=== PATIENT | female | born 1955 | race Caucasian/White ===

== ENCOUNTER 2020-05-01 00:34 | Emergency (ER) | payer OTHER ==
[2020-05-01 00:38] VITALS: BP 142/77; PULSE 95
--- NOTE | 2020-05-01 01:19 | EDM.PDOC ---
ED HPI GENERAL MEDICAL PROBLEM - General Chief Complaint: Abdominal Pain Stated Complaint: right side abdominal pain Time Seen by Provider: 05/01/20 00:50 Source of Information: Reports: Patient History Limitations: Reports: No Limitations - History of Present Illness INITIAL COMMENTS - FREE TEXT/NARRATIVE: Pt presents with right flank pain that extends to RLQ Pain now much improved No fever No N/V/D No dysuria No trauma Onset: Today, Sudden Duration: Hour(s):, Getting Worse Location: Reports: Back Quality: Reports: Throbbing Severity: Moderate Abdominal Pain Score (Numeric/FACES): 8 - Related Data Allergies Allergy/AdvReac Type Severity Reaction Status Date / Time amoxicillin [From Augmentin] Allergy Rash Verified 04/28/16 09:35 clavulanic acid Allergy Rash Verified 04/28/16 09:35 [From Augmentin] Home Meds: Home Meds Escitalopram Oxalate [Lexapro] 10 mg PO DAILY 05/01/20 [History] Meloxicam [Mobic] 7.5 mg PO BID 05/01/20 [History] Past Medical History - Infectious Disease History Infectious Disease History: Reports: Mononucleosis, Mumps Social & Family History - Tobacco Use Tobacco Use Status *Q: Former Tobacco User Years of Tobacco use: 40 Packs/Tins Daily: 1.5 Used Tobacco, but Quit: Yes Month/Year Tobacco Last Used: 2013 - Caffeine Use Caffeine Use: Reports: Coffee - Recreational Drug Use Recreational Drug Use: No ED ROS GENERAL - Review of Systems Review Of Systems: See Below GI/Abdominal: Reports: Abdominal Pain Musculoskeletal: Reports: Back Pain ED EXAM, GI/ABD - Physical Exam Exam: See Below Exam Limited By: No Limitations General Appearance: Alert, WD/WN, Mild Distress GI/Abdominal Exam: No Distention, Tender Back Exam: CVA Tenderness (R) Neurological: Alert, Oriented Course - Vital Signs Last Recorded V/S: Last Vital Signs Temp 98.2 F 05/01/20 00:34 Pulse 95 05/01/20 00:34 Resp 20 05/01/20 00:34 BP 142/77 H 05/01/20 00:34 Pulse Ox 97 05/01/20 00:34 - Orders/Labs/Meds Labs: Laboratory Tests 05/01/20 Range/Units 00:47 Specimen Type Urinvoid Urine Color Yellow Urine Appearance Clear Urine pH 5.0 (5.0-9.0) Ur Specific [place] 1.025 (1.005-1.030) Urine Protein Negative (NEGATIVE) mg/dL Urine Glucose (UA) Negative (NEGATIVE) mg/dL Urine Ketones Negative (NEGATIVE) mg/dL Urine Occult Blood Negative (NEGATIVE) Urine Nitrite Negative (NEGATIVE) Urine Bilirubin Negative (NEGATIVE) Urine Urobilinogen 0.2 (0.2-1.0) E.U./dL Ur Leukocyte Esterase Negative (NEGATIVE) - Re-Assessments/Exams Free Text/Narrative Re-Assessment/Exam: 05/01/20 01:16 Pt feels much better now See UA D/W pt that pain may be due to kidney stone Does not desire Ct at this time Will treat expectantly and CT in future if worse Rx Tramadol One every 6 hours for pain Departure - Departure Time of Disposition: :20 Disposition: Home, Self-Care 01 Clinical Impression: Abdominal pain Qualifiers: Abdominal location: right lower quadrant Qualified Code(s): R10.31 - Right lower quadrant pain - Discharge Information *PRESCRIPTION DRUG MONITORING PROGRAM REVIEWED*: Not Applicable *COPY OF PRESCRIPTION DRUG MONITORING REPORT IN PATIENT VANITA: Not Applicable Instructions: Abdominal Pain, Adult, [id number] Additional Instructions: Follow up in clinic Rx Tramadol 50 mg every 6 hours for pain Sepsis Event Note (ED) - Evaluation Sepsis Screening Result: No Definite Risk - Focused Exam Vital Signs: Vital Signs Temp Pulse Resp BP Pulse Ox 05/01/20 00:34 98.2 F 95 20 142/77 H 97
== END 2020-05-01 01:26 | disposition home or self-care (01) ==
LOC: LL.ED 00:34
DX: R10.31 Right lower quadrant pain (principal); Z88.1 Allergy status to other antibiotic agents; Z87.891 Personal history of nicotine dependence; Z79.899 Other long term (current) drug therapy
CPT/HCPCS: 81003; 99283; 99284